=== PATIENT | male | born 1960 | race Caucasian/White ===

== ENCOUNTER 2018-07-15 14:39 | Emergency (ER) | payer SELFPAY ==
[2018-07-15] MEDS ORDERED: ONDANSETRON HCL IV 4 MG/2 ML VIAL IVP ONE (15:00)
--- NOTE | 2018-07-15 15:15 | Emergency Department Record ---
History of Present Illness - General Chief complaint: Extremity Problem Stated complaint: LT ARM XRAY Time Seen by Provider: 07/15/18 14:41 Source: Patient Mode of Arrival: Ambulatory Limitations: No limitations - History of Present Illness Initial comments: 57 yo male presents with a concern about the possibility of an implanted foreign body in his left scapular/shoulder area. He states this has been ongoing since 2013. He states it is some sort of biochip. In the past 5 years he occasionally hear voices and believes the chip is the source. 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 He feels safe and not threatened by the chip. He denies any thought of self harm. He has not been instructed to harm himself or others. He appears well kept. Lives independently with these symptoms for many years. He denies any other symptoms. He is calm, cooperative and conversational. He presents with a law enforcement report from 07/03/18 that states these same facts. No reports at that time of threats to self of others or any personal endangerment. He states he has been seen at [facility] in [place] for this in the past. He will follow up with them but requests the XR first. MD Complaint: Other Onset/Timin -: Year(s) Location: Left, Arm Associated Symptoms: Denies other symptoms - Related Data Allergies Allergy/AdvReac Type Severity Reaction Status Date / Time No Known Drug Allergies Allergy Verified 07/15/18 14:52 Travel Screening - Travel/Exposure Within Last 30 Days Have you traveled within the last 30 days?: No - Travel/Exposure Within Last Year Have you traveled outside the [place] in the last year?: No - Additonal Travel Details Have you been exposed to anyone with a communicable illness?: No - Travel Symptoms Symptom Screening: None Review of Systems Constitutional: Denies: Chills, Fever, Malaise, Weakness, Other Eyes: Denies: Eye discharge, Eye pain, Vision change ENT: Denies: Congestion, Throat pain Respiratory: Denies: Cough Cardiovascular: Denies: Chest pain, Palpitations, Syncope Endocrine: Denies: Fatigue Gastrointestinal: Denies: Abdominal pain, Diarrhea, Nausea, Vomiting Genitourinary: Denies: Dysuria, Frequency Musculoskeletal: Denies: Arthralgia, Back pain, Myalgia Skin: Denies: Bruising, Change in color, Rash Neurological: Denies: Headache Psychiatric: Reports: Auditory hallucinations. Denies: Anxiety, Depression, Homicidal thoughts, Suicidal thoughts, Visual hallucinations Hematological/Lymphatic: Denies: Anemia, Blood Clots, Easy bruising Past Medical History - SOCIAL HISTORY Smoking Status: Current every day smoker Alcohol Use: None Drug Use: None - RESPIRATORY Hx Respiratory Disorders: No - CARDIOVASCULAR Hx Cardio Disorders: No - NEURO Hx Neuro Disorders: No - GI Hx GI Disorders: No - Hx Genitourinary Disorders: Yes Hx Prostate Problems: Yes - ENDOCRINE Hx Endocrine Disorders: No - MUSCULOSKELETAL Hx Musculoskeletal Disorders: No - HEMATOLOGY/ONCOLOGY Hx Hematology/Oncology Disorders: No Family Medical History Any Significant Family History?: No Physical Exam - General General Appearance: Alert, Oriented x3, Cooperative, No acute distress Limitations: No limitations - Head Head exam: Atraumatic, Normocephalic, Normal inspection - Eye Eye exam: Normal appearance, PERRL. negative: Conjunctival injection, Scleral icterus - ENT ENT exam: Normal exam, Mucous membranes moist Ear exam: Normal external inspection Nasal Exam: Normal inspection Mouth exam: Normal external inspection - Neck Neck exam: Normal inspection - Respiratory Respiratory exam: Normal lung sounds bilaterally. negative: Respiratory distress - Cardiovascular Cardiovascular Exam: Regular rate, Normal rhythm, Normal heart sounds - GI/Abdominal GI/Abdominal exam: Soft. negative: Tenderness - Rectal Rectal exam: Deferred - exam: Deferred - Extremities Extremities exam: Normal inspection - Neurological Neurological exam: Alert, Normal gait, Oriented X3. negative: Abnormal gait, Altered, Motor sensory deficit - Psychiatric Psychiatric exam: Normal affect, Normal mood, Other (Calm, conversational, no hostility, other than the chip he is very logical, very good historian with regard to memory, ). negative: Agitated, Anxious, Depressed, Flat affect, Homicidal ideation, Manic, Suicidal ideation - Skin Skin exam: Dry, Intact, Normal color, Warm Course Vital Signs 07/15/18 14:41 Temperature 98.1 F Pulse Rate 98 H Respiratory 18 Rate Blood Pressure 114/76 Pulse Ox 96 - Reevaluation(s) Reevaluation #1: The XR was read as no foreign body I assured him it is highly unlikely he has a biochip implanted I find him calm, relaxed, accepting of my information He does not seem to be in any acute crisis for an issue that has been longstanding He informed me he has been seen at [facility] in [place] in the past and will follow up with them 07/15/18 15:24 The patient was shown the XR He was reassured for now there is no biochip He confirm's he will follow up with [facility] in [place] He is not in a psychiatric crisis at this time He is stable for outpatient follow up as an outpatient at [facility] He is aware they have crisis services and has the number to call as well. He also does not feel unsafe, that he is in crisis, or that these are new or out of control symptoms 07/15/18 15:33 Disposition Disposition: Discharge Clinical Impression: Delusion Disposition: Home, Self-Care Condition: (1) Good Instructions: Psychotic Disorder (ED) Additional Instructions: Call or go to [facility] for your follow up as week discussed Return or call an ambulance immediately if you feel unsafe The number for [facility] is [phone] Forms: Patient Portal Access Time of Disposition: 15:27 Quality - Quality Measures Quality Measures: N/A - Blood Pressure Screening Does Patient Have Any of the Following: No Blood Pressure Classification: Normal BP Reading Systolic Measurement: 112 Diastolic Measurement: 74 Screening for High Blood Pressure: < Normal BP, F/U Not Required > [G8783]
--- NOTE | 2018-07-18 05:51 | RADIOLOGY REPORT ---
EXAM: LEFT SHOULDER, TWO VIEWS HISTORY: EVALUATE FOR FOREIGN BODY IN LEFT SHOULDER. TECHNIQUE: AP and scapular Y-views of the left shoulder were obtained. Comparison: Same day single view chest. Encounter: Initial. FINDINGS: There is normal bone mineralization. No fracture, dislocation, or destructive bone lesion is seen. The articular relations to the extent visualized are maintained. No radiopaque foreign body identified. IMPRESSION: NO ACUTE BONE NOR JOINT ABNORMALITY. NO RADIOPAQUE FOREIGN BODY IDENTIFIED. JOB NUMBER: [id number] [facility]
--- NOTE | 2018-07-18 05:55 | RADIOLOGY REPORT ---
DATE: 07/15/2018 at 1504 hours. EXAM: CHEST, ONE VIEW. HISTORY: Evaluate for foreign body of left shoulder. TECHNIQUE: Single upright PA view of the chest is obtained. COMPARISON: Same-day radiographic examination of the left shoulder. FINDINGS: The cardiomediastinal silhouette is normal in size and configuration. The pulmonary vasculature is nondilated. No confluent air space opacity is seen; nor is there costophrenic angle blunting or pneumothorax. Mild dextro convex curvature of the lower cervical and upper thoracic portions of the spine. There is a nodular density seen at the level of the right hemithorax base consistent with a vessel on end or small, calcified granuloma. IMPRESSION: NO EVIDENCE OF ACUTE CARDIOPULMONARY DISEASE. NO EVIDENCE OF FOREIGN BODY. JOB NUMBER: [id number] [facility]
== END 2018-07-15 15:38 | disposition home or self-care (01) ==
LOC: ER 14:39
DX: F22 Delusional disorders (principal); F17.210 Nicotine dependence, cigarettes, uncomplicated
CPT/HCPCS: 71045; 99283; 99284